=== PATIENT | female | born 1995 | race Caucasian/White ===

== ENCOUNTER 2019-02-24 23:58 | Emergency (ER) | payer BC, SELFPAY ==
[2019-02-24 23:58] VITALS: BP 135/73; PULSE 95; RESP 16; TEMP 36.8; O2SAT 99; BMI 41.6
[2019-02-25 00:19] LABS: Mucous, Urine 0 SEEN /hpf (<or=2+)
[2019-02-25 00:21] LABS: Color, Urine SEE COMMENT BELOW (Yellow); Glucose, Dipstick Normal (Normal); Ketone-Dipstick 5 mg/dl (Negative); Leukocyte Esterase-Dipstick 100 /ul (Negative); Nitrite-Dipstick Positive (Negative); Occult Blood-Urine 50 /ul (Negative); Protein-Dipstick 100 mg/dl (Negative); Specific Gravity, Urine 1.015 (1.002-1.030); Urine Bilirubin Dipstick 6 mg/dL (Negative); Urine Clarity Cloudy (Clear); Urine Urobilinogen 8 mg/dl (Normal)
[2019-02-25 00:36] LABS: Bacteria 2+ /hpf (None Seen); Red Blood Cells-Urine 5-10 SEEN /hpf (0-5); Squamous Epithelial Cells - UA 0-5 SEEN /hpf (5-10); White Blood Cells 50-100 SEEN /hpf (0-5)
[2019-02-25 01:20] LABS: Internal QC Validated? YES +Cl - CLEAR BKGD; Pregnancy, Urine Negative Negative
[2019-02-25] MEDS: Cephalexin 250 MG Capsule 500 MG PO (01:20)
--- NOTE | 2019-02-25 01:29 | ED.DCSUM_ITS ---
History of Present Illness Chief Complaint: Complaint Onset: Days - 3 Context: Gradual Onset Narrative: She is a 23-year-old female with no significant past medical history presenting with UTI symptoms. Patient states that she has a history of UTIs. She used her tele-doc on February 15, 2010 days ago. At that time she was given a prescription for Macrobid. She finished that 6 days ago. She notes her symptoms had resolved but they returned 2 days ago. She has associated dysuria, cramping lower abdominal pain and lower back pain. She denies any associated nausea or vomiting. She denies any diarrhea or bowel changes. She states this feels like her prior UTIs. She denies any abnormal vaginal bleeding or discharge. Her last mental period was February 10. She denies any fever or chills. Past Medical History - Allergies and Home Meds Allergies/Adverse Reactions: Allergies No Known Allergies Allergy (Verified 02/25/19 00:00) Primary Care Physician: Care Physician,No Primary [Primary Care Provider] - Past Medical History: - - Frequent UTIs Surgical History: noncontributory Smoking Status: Light Smoker (<10/day) Review of Systems General: Denies: Chills, Fever, Sweats Eyes: Denies: Visual changes - bilaterally, Diplopia ENT: Denies: Rhinorrhea, Sore throat Cardiovascular: Denies: Chest pain, Palpitations Respiratory: Denies: Dyspnea, Cough, Dyspnea on exertion Gastrointestinal: Reports: Abdominal pain - suprapubic. Denies: Nausea, Vomiting, Diarrhea, Melena, Hematochezia Genitourinary: Reports: Dysuria. Denies: Hematuria, Frequency Musculoskeletal: Reports: Back pain - lower. Denies: Extremity Pain Skin: Denies: Rash, Wounds Neurological: Denies: Headache, Weakness, Numbness Physical Exam Vital Signs/Narrative: Vital Signs Temp Pulse Resp BP Pulse Ox 02/24/19 23:58 98.2 F 95 16 135/73 H 99 Inital Vital Signs reviewed: Yes General: Well nourished, Well developed, No Acute Distress Head: Normocephalic, Atraumatic Eyes: Perrl, EOMI ENT: Moist mucous membranes, No rhinorrhea Neck: Supple, Nontender Cardiovascular: Regular rate, Regular rhythm, No murmurs Respiratory: No distress, CTA bilaterally, Chest nontender Abdomen: Soft, Nondistended, Normal bowel sounds, Tender - suprapubic . Negative for: Guarding, Rebound tenderness Back: Nontender, Normal Inspection. Negative for: CVA tenderness, Spinal tenderness Extremities: Nontender, No edema Skin: Normal color, No rash Neurological: Alert, Oriented x3, Cranial nerves II-XII grossly intact, Normal Strength, Normal Sensation Psychological: Normal affect, Normal Mood Diagnostic/Tx/Re-eval Laboratory Data 02/25/19 02/25/19 00:02 00:07 Urine Color SEE COMMENT BELOW Urine Clarity Cloudy Urine pH 5.0 Ur Specific Central 1.015 Urine Protein 100 H Urine Glucose (UA) Normal Urine Ketones 5 H Urine Occult Blood 50 H Urine Nitrite Positive H Urine Bilirubin 6 H Urine Urobilinogen 8 H Ur Leukocyte Esterase 100 H Urine RBC 5-10 SEEN Urine WBC 50-100 SEEN Ur Squamous Epith Cells 0-5 SEEN Urine Bacteria 2+ Urine Mucus 0 SEEN Urine Test Negative - Medical Decision Making Evaluated for symptoms consistent with urinary tract infection. She appears nontoxic and in no acute distress. Vital signs are normal. She is afebrile. Patient just completed a course of Macrobid and her symptoms return. Likely she was incompletely treated as urinalysis is consistent with UTI. Urine culture is sent. She is started on Keflex. She is also given a prescription for Pyridium and Motrin for symptomatic relief. I do not suspect pyelonephritis at this time. She is otherwise well-appearing and I do not think blood work is indicated at this time. Patient is otherwise well-appearing and eating and drinking comfortably at home. She is afebrile. I think she is a good candidate for outpatient treatment. Patient is counseled on signs and symptoms requiring return to the emergency room. Patient verbalizes agreement and understand this plan. Patient discharged home in stable and improved condition. ED Disposition - Plan for ED Patient: Disposition: Home or Assisted Living Diagnosis: UTI (urinary tract infection) Instructions: Bladder Infection, Female (Adult) Prescriptions: Cephalexin [Keflex] 500 mg PO Q12 #14 cap Prescription Printed Ibuprofen [Motrin] 600 mg PO Q6H PRN PRN #20 tab PRN Reason: Pain Or Fever Prescription Printed Phenazopyridine HCl [Pyridium] 200 mg PO TID #6 tab Prescription Printed Referrals: Care Physician,No Primary [Primary Care Provider] - Additional Instructions: Follow-up with your primary care doctor in the next week. Return with worsening symptoms. Drink plenty of fluids.
[2019-02-25] MEDS: Ibuprofen 600 MG Tablet PO (02:05)
== END 2019-02-25 02:08 | disposition home or self-care (01) ==
PROVIDERS: Emergency Provider Emergency Medicine
DX: N39.0 Urinary tract infection, site not specified (principal); F17.200 Nicotine dependence, unspecified, uncomplicated; Z87.440 Personal history of urinary (tract) infections
CPT/HCPCS: 81001; 81025; 87077; 87086; 87088; 87186; 99283

== ENCOUNTER 2020-03-04 09:01 | Emergency (ER) | payer OTHER, SELFPAY ==
[2020-03-04 09:02] VITALS: BP 134/88; PULSE 97; RESP 16; TEMP 36.3; O2SAT 98; BMI 41.5
--- NOTE | 2020-03-04 09:05 | ED.RN ---
EMPLOYEE FISCAL CLERK--[employer]-- [phone]. [facility]
--- NOTE | 2020-03-04 09:38 | RAD_ITS ---
STUDY: X-RAY - RIGHT KNEE REASON FOR EXAM: Female, 24 years old. right knee pain, fell this morning floor TECHNIQUE: 4 view(s) of the knee. COMPARISON: None. FINDINGS: Normal visualized distal femur. Normal visualized proximal tibia and fibula. Normal proximal tibiofibular articulation. Normal medial femorotibial compartment. Normal lateral femorotibial compartment. Normal patellofemoral articulation. The soft tissue structures are unremarkable. RAD/Knee 4 or More Views IMPRESSION: Normal x-ray examination of the knee. Electronically Signed: Glenn Hamm DO at 10:26 EST Tel , Service support ,
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
[2020-03-04] MEDS: Ibuprofen 400 MG Tablet 800 MG PO (10:39)
--- NOTE | 2020-03-04 10:42 | ED.RN ---
DISCHARGE INSTRUCTIONS GIVEN TO AND REVIEWED WITH PATIENT, PATIENT DENIES QUESTIONS OR CONCERNS AND VOICES UNDERSTANDING OF DISCHARGE INSTRUCTIONS. PT AMBULATES OUT OF ROOM WITHOUT DIFFICULTY.
== END 2020-03-04 10:42 | disposition home or self-care (01) ==
PROVIDERS: Emergency Provider Emergency Medicine
DX: S80.01XA Contusion of right knee, initial encounter (principal); W19.XXXA Unspecified fall, initial encounter
CPT/HCPCS: 73564; 99282